=== PATIENT | male | born 1985 | race Caucasian/White ===

== ENCOUNTER 2021-01-28 17:02 | Observation (INO) | payer OTHER, SELFPAY ==
[2021-01-28 17:03] VITALS: BP 116/77; PULSE 64; RESP 16; TEMP 37; O2SAT 98; BMI 22.6
[2021-01-28] MEDS: Ondansetron 4 MG/2 ML Vial IV (17:36)
[2021-01-28] MEDS: Morphine 4 MG/ML Syringe IV (17:36)
--- NOTE | 2021-01-28 17:40 | RAD_ITS ---
STUDY: X-RAY - LEFT KNEE REASON FOR EXAM: Male, 35 years old. FB TECHNIQUE: 2 view(s) of the knee. COMPARISON: None. FINDINGS: An 8.56 cm metallic nail is present obliquely across the medial femoral condyle partially projecting into the overlying soft tissues. The entry point/laceration for the nail is also seen in the overlying soft tissues. Normal visualized proximal tibia and fibula. Normal proximal tibiofibular articulation. Normal medial femorotibial compartment. Normal lateral femorotibial compartment. Normal patellofemoral articulation. There is no demonstrated joint effusion. RAD/Knee 1 or 2 Views IMPRESSION: 1. An 8.56 cm metallic nail is present obliquely across the medial femoral condyle partially projecting into the overlying soft tissues. The entry point/laceration for the nail is also seen in the overlying soft tissues. Electronically Signed: Eitan Rangel MD at 18:36 EDT , Service support ,
[2021-01-28] MEDS: HYDROmorphone 1 MG/ML Syringe IV (18:27)
[2021-01-28] MEDS: Diphth,Pertuss(Acell),Tet Vac 0.5 ML Vial IM (18:31)
[2021-01-28] MEDS: Cefazolin 2 GM in 0.9% Normal Saline 100 ML IV (18:41)
[2021-01-28 19:17] VITALS: BP 113/74; PULSE 72; RESP 16; O2SAT 99
[2021-01-28] MEDS: Lidocaine 2% /Epi 1:100 (20ml) 20 ML VIAL INFILT (19:22)
--- NOTE | 2021-01-28 20:38 | EX.ED.DYSGE1 ---
HPI History of Present Illness Chief Complaint: Foreign Body Narrative Narrative: Patient is a 35-year-old [facility] male with no reported past medical history. He states he was walking down his ladder today holding his nail gun when he let his arm fall to his side and the nail gun accidentally shot into his left thigh/knee. He denies any other trauma and states he was able to hobble/walk on it. However he cannot get the nail removed at home and secondary to this presents for evaluation PFSH PFS Medical History no medical history Home Medications multivitamin 1 tab PO DAILY 01/28/21 [History Last Taken Unknown] Allergy/AdvReac Type Severity Reaction Status Date / Time No Known Allergies Allergy Verified 01/28/21 17:05 Surgical History no surgical history Social History Smoking Status: Never smoker ROS ROS ED Constitutional Constitutional ED: Denies chills or fever(s) ENT ENT ED: Denies sore throat Cardiovascular Cardiovascular: Denies chest pain Respiratory/Chest Respiratory/Chest: Denies cough or dyspnea Gastrointestinal Gastrointestinal: Denies abdominal pain, diarrhea, nausea or vomiting Genitourinary Genitourinary ED: Denies dysuria Musculoskeletal Musculoskeletal: Reports other Details: Positive left thigh/knee pain Integumentary Reports other Details: Positive puncture wound ; Denies rash Neurologic Neurologic: Denies headache(s) or paresthesias Hematologic/Lymphatic Hematologic/Lymphatic: Denies easy bleeding or easy bruising EXAM Physical Exam Const Vital Signs: 01/28/21 17:03 01/28/21 19:17 Temperature 98.6 F Temperature Source Temporal Pulse Rate 64 72 Respiratory Rate 16 16 Blood Pressure 116/77 113/74 Blood Pressure Mean 90 87 Pulse Ox 98 99 Oxygen Delivery Method Room Air Positive well nourished and well developed General Appearance ED: well developed HEENT Reports moist mucous membranes Eyes PERRL and EOMs intact bilaterally Neck supple Resp normal respiratory effort and clear to auscultation bilaterally Cardio regular rate and regular rhythm GI normal to inspection, nondistended, normoactive bowel sounds, non-tender and non-distended Auscultation: normoactive bowel sounds Palpation: soft Extremity Extremity Narrative: Patient has a puncture wound/nail in place to the left distal thigh just above the knee along the vastus medialis portion of the quadriceps. Active and passive range of motion is severely limited secondary to pain from the foreign body. The compartments are soft but slightly swollen but no obvious changes to suggest compartment syndrome. The patient is also neurovascular intact with plus 2 out of 4 dorsalis pedis pulse. Neuro oriented x3 and CN's II-XII intact bilaterally Sensorium / Orientation: alert Psych mental status grossly normal Skin Skin Narrative: Soft tissue swelling with puncture wound to the left distal thigh/knee as documented above MDM MDM MDM Narrative Medical decision making narrative: Patient presented to the ER with a foreign body/puncture wound to the left distal thigh/knee. He is neurovascularly intact below this site and does not have any changes to suggest compartment syndrome. The patient was given Ancef secondary to the traumatic puncture and his tetanus status was updated. The area was then cleaned with chlorhexidine and anesthetized with 8 mL of 2% lidocaine with epinephrine local fashion. I then attempted to remove the nail but was unable to do so. Secondary to this I contacted orthopedics who evaluated the patient in the ER. They feel the nail is now crossing into the joint and he will need to go to surgery to have this removed. Therefore patient be admitted to their service at this time for surgical intervention to remove his foreign body. Radiography Diagnostic Testing: Clinical Impression(s) from Imaging Studies Knee X-Ray 01/28/21 17:40 IMPRESSION: 1. An 8.56 cm metallic nail is present obliquely across the medial femoral condyle partially projecting into the overlying soft tissues. The entry point/laceration for the nail is also seen in the overlying soft tissues. Electronically Signed: Eitan Rangel MD at 18:36 EDT , Service support , Discharge Plan Dx/Rx/DC Orders Clinical Impression: Acute foreign body of left thigh, Traumatic arthropathy, left knee Disposition Disposition: Acute Care Hospital [facility] Discharge Date/Time: 01/28/21 21:30
--- NOTE | 2021-01-28 20:46 | HP.PCM_ITS ---
HPI - General HPI Narrative DALIA NIETO, is a 35 M who presents approximately 3 hours status post injury to his left knee. 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 He states his fingers on the trigger and his left knee contacted the end of the nail gun causing it to go off into his left knee. Patient was brought to the emergency department at [facility]. X-rays revealed that the nail has bed embedded in the distal femur with intra-articular extension. The emergency department physician attempted to remove the nail but was unsuccessful. I was contacted for my recommendations. Patient denies any numbness or tingling prior to a field block administered by the ED physician. He denies any other associated injuries. Denies any problems prior to this issue with his left knee. [facility] Medical History no medical history Home Medications multivitamin 1 tab PO DAILY 01/28/21 [History Last Taken Unknown] Allergy/AdvReac Type Severity Reaction Status Date / Time No Known Allergies Allergy Verified 01/28/21 17:05 Surgical History no surgical history Social History Smoking Status: Never smoker ROS ROS Narrative 12 point review of systems obtained, negative unless otherwise noted in HPI. Vital Signs Vital Signs Vital Signs: 01/28/21 17:03 01/28/21 19:17 Temperature 98.6 F Temperature Source Temporal Pulse Rate 64 72 Respiratory Rate 16 16 Blood Pressure 116/77 113/74 Blood Pressure Mean 90 87 Pulse Ox 98 99 Oxygen Delivery Method Room Air Weight Weight: 140 lb Body Mass Index (BMI) 22.6 Physical Exam Narrative General -A&Ox3, NAD, appears stated age. Vital signs stable, afebrile. Respiratory -normal work of breathing, no intercostal retractions. CV -pulses regular, brisk capillary refill ?4 limbs. Abdomen-soft, nontender, nondistended. No guarding, rigidity, rebound tenderness. Musculoskeletal/neurologic -full range of motion nontender throughout bilateral upper extremities, right lower extremity with full sensation and strength in all dermatomes and myotomes. No midline cervical tenderness. Left lower extremity-obvious skin puckering along the medial femoral condyle with exposed nail head. No significant effusion is noted of the left knee. Pain with passive and active motion of the knee. Brisk capillary refill. Sensation intact light touch L3-S1 dermatomes. DF, PF, EHL intact. DP, PT 2+. Pelvis is stable, nontender. Skin is intact without lacerations, abrasions. No ecchymosis noted. Results Radiology Impression Knee X-Ray 01/28/21 17:40 IMPRESSION: 1. An 8.56 cm metallic nail is present obliquely across the medial femoral condyle partially projecting into the overlying soft tissues. The entry point/laceration for the nail is also seen in the overlying soft tissues. Electronically Signed: Eitan Rangel MD at 18:36 EDT , Service support , Assessment & Plan Assessment/Plan (1) Traumatic arthropathy, left knee: PLAN: Patient has a retained foreign body, a resident services manager nail, in his left medial femoral condyle extending into the intercondylar notch. I recommended removal of the nail as well as irrigation and debridement to reduce his risk of septic arthritis of the left knee. I did attempt to remove the nail at bedside in the emergency department by first incising the skin to stop the skin from puckering around the entry site. He tolerated this well after the skin was prepped with Betadine. I was able to place a hemostat around the nail, but the nail is well embedded and I recommended this is best performed under general anesthetic. Plan to admit the patient under my care overnight for observation. Plan to proceed with surgery tomorrow for arthroscopic irrigation debridement left knee with removal of foreign body. We will maintain IV Ancef 1 g every 8 until surgery. Tetanus was updated by emergency room physician. N.p.o. after midnight. Maintenance IV fluids. Informed consent obtained for surgery. Risks of surgery include but are not limited to bleeding, infection, loss of life or limb, risk of anesthesia, fracture, need for additional surgery, persistent pain, chondral injury, ligamentous injury, neurovascular injury, DVT/PE. Patient expressed understanding wish to proceed with surgery. We will obtain standard preoperative labs including CBC, BMP, COVID-19 swab. (2) Acute foreign body of left thigh: QUALIFIERS: Encounter type: initial encounter Qualified Code(s): S70.352A - Superficial foreign body, left thigh, initial encounter
[2021-01-28 20:50] VITALS: BP 113/74; PULSE 72; RESP 16; TEMP 37; O2SAT 99
[2021-01-28 20:58] LABS: Absolute Lymphocyte Count 1.41 X10^3/uL (0.83-4.51); Absolute Neutrophil Count 8.3 X10^3/uL (2.0-7.7); Basophil# 0.04 X10^3/uL; Basophil% 0.4 % (0-1); Eosinophil# 0.04 X10^3/uL; Eosinophils% 0.4 % (0-5); Hematocrit 39.3 % (40-54); Hemoglobin 13.4 g/dL (13.0-16.5); Lymphocyte # 1.41 X10^3/ul (0.83-4.51); Lymphocyte % 13.5 % (19-41); Mean Corp Hgb Conc 34.1 g/dL (32-36); Mean Corpuscular Hgb 28.6 pg (27.0-32.0); Mean Corpuscular Volume 83.8 fL (80-94); Mean Platelet Vol. 8.8 fl (6.2-12.0); Monocyte# 0.61 X10^3/uL; Monocyte% 5.8 % (0-10); NRBC Flagged by Analyzer 0 % (0-5); Neutrophil # 8.32 X10^3/uL (2.7-7.7); Neutrophil % 79.5 % (47-70); Platelet Count 204 K/mm3 (150-450); RBC Distribution Width CV 13.8 % (11.6-14.6); RBC Distribution Width SD 41.8 fl (35.1-43.9); Red Blood Count 4.69 M/mm3 (4.6-6.2); White Blood Count 10.5 K/mm3 (4.4-11.0)
[2021-01-28 21:06] VITALS: RESP 16
[2021-01-28 21:15] LABS: Anion Gap 7 (5-15); BUN 14 mg/dL (7-18); BUN/Creat Ratio 16.7 RATIO (10-20); Calcium,Total 8.9 mg/dL (8.5-10.1); Chloride 105 mmol/L (98-107); Creatinine, Serum 0.84 mg/dL (0.70-1.30); EST Glomerular Filtration Rate 112 mL/min (>60); Est Glom Filt Rate - Afr Amer 135 mL/min (>60); Glucose 118 mg/dL (74-106); Potassium 3.7 mmol/L (3.5-5.1); Sodium Level 138 mmol/L (136-145)
[2021-01-28 21:49] VITALS: BP 120/60; PULSE 84; RESP 16; TEMP 36.3; O2SAT 97
[2021-01-28 21:58] VITALS: BMI 22.5
[2021-01-28] MEDS: Lactated Ringers 1,000 ML 125 ML IV (22:37)
[2021-01-28] MEDS: oxyCODONE 5 MG Tablet PO (23:54)
[2021-01-29] VITALS (10 sets, daily range): BP systolic 104–125; BP diastolic 65–83; PULSE 60–72; RESP 16–18; TEMP 36.4–36.8; O2SAT 90–100; BMI 22.5
[2021-01-29] MEDS: Cefazolin 1 GM/50 ML BAG IV ×3 (02:46→16:01)
[2021-01-29] MEDS: oxyCODONE 5 MG Tablet PO (05:45)
[2021-01-29] MEDS: Lactated Ringers 1,000 ML 125 ML IV ×2 (07:05→08:30)
[2021-01-29] MEDS: Bupivacaine Mpf 0.5% 30 ML VIAL (08:05)
[2021-01-29] MEDS: Bupivacaine 0.5% PF 10 ML VIAL (08:05)
--- NOTE | 2021-01-29 08:14 | RAD_ITS ---
STUDY: X-RAY - LEFT KNEE REASON FOR EXAM: Fluoroscopy for foreign body removal. TECHNIQUE: A single intraoperative image of the knee. COMPARISON: Radiographs 01/28/2014. FINDINGS: There is removal of the nail without evidence of complication. 1 second of fluoroscopy time was used. Electronically Signed: Satnam Weiner MD at 11:10 EDT Tel , Service support , RAD/Knee 1 or 2 Views
--- NOTE | 2021-01-29 09:14 | PCM.DC ---
Discharge Instructions Follow Up Care Test Results: Test results from this visit will be discussed in further detail at your follow-up appointment, if applicable. Discharge Plan Admission Admit Date/Time: 01/28/21 20:42 Primary Reason for Your Visit: Retained foreign body left knee, traumatic arthrotomy Attending Provider: Garcia Rose Primary Care Provider: Amos Diallo Instructions Additional Instructions / Restrictions: Ice and elevate left knee Range of motion as tolerated, weightbearing as tolerated left knee Okay to shower 02/01/2021 if no significant drainage. Okay to leave open to air once no drainage. Apply antibiotic ointment after shower. No tub soaks until follow-up. Follow-up with me in the [place] office in 2-3 weeks Discharge Orders/Prescriptions Prescriptions: New aspirin [Aspirin Low Dose] 81 mg tablet,delayed release (DR/EC) 81 mg PO DAILY 14 Days Qty: 14 RF: 0 oxycodone-acetaminophen [Percocet] 5-325 mg tablet 1 tab PO Q6H PRN (Reason: pain) 5 Days Qty: 20 RF: 0 cephalexin 500 mg capsule 500 mg PO Q6H 10 Days Qty: 40 RF: 0 No Action multivitamin Tablet 1 tab PO DAILY RF: 0 Referrals / Follow Up: Amos Diallo DO [Primary Care Provider] - Garcia Rose DO [STAFF PHYSICIAN] - 02/20/21 Disposition Discharge Orders: Discharge Patient (Routine); Ordered 01/29/21 Ordered By: Dr. Garcia Rose
--- NOTE | 2021-01-29 09:17 | PCM.OPRPT ---
Problems Associated Problem List Diagnoses (1) Traumatic arthropathy, left knee: (2) Acute foreign body of left thigh: Report of Operation Date of Procedure: 01/29/21 Description of Surgical Findings:: Date of surgery: 01/29/2021 Preoperative diagnosis: Traumatic arthrotomy left knee with retained foreign body Postoperative diagnosis: 1. Traumatic arthrotomy left knee with retained foreign body 2. Partial tear femoral insertion posterior cruciate ligament left knee 3. Synovitis left knee Procedure: 1. Removal of retained foreign body left femur/knee 2. 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 Hematoma and fraying of the femoral origin of the PCL. Synovitis left knee. Preoperative indications: This is an otherwise healthy 35-year-old male seen as a consultation from the emergency department in the evening of 01/28/2021. Patient was working building a storage barn. He was on a ladder with a nail gun, while descending the ladder his fingers on the trigger in his knee contacted the end of the nail gun. Nail gun went off and a nail punctured his distal medial femur/knee. He was brought to [facility] emergency department where x-rays were obtained and demonstrated a retained metallic nail traversing the medial femoral condyle and exiting with its tip in the intercondylar notch. This demonstrated a traumatic arthrotomy. The emergency room physician administered IV Ancef and tetanus upon arrival. He performed a field block and attempted to extract the nail. This was unsuccessful. I saw the patient in the emergency department. There was significant puckering of the skin on the entry wound. I made a small incision to take pressure off the skin. I was unable to remove the nail emergency department. I recommended operative intervention the following day with the arthroscopic irrigation debridement and removal of foreign body left knee. The risks, benefits, alternatives to procedure were reviewed with patient at length he agreed to proceed. Risks included but were not limited to bleeding, infection, loss of life or limb, risk of anesthesia, persistent pain, neurovascular injury, chondral injury, need for additional surgery, persistent limp, ligamentous injury. Patient expressed understanding wish to proceed with surgery. Patient did receive scheduled Ancef every 8 hours prior to procedure. Description of procedure: Patient was identified in the preoperative holding area the morning of 01/29/2021. Informed consent was confirmed. The operative extremity was marked after the patient was identified by medical record number, date of , and name. All questions were answered patient satisfaction. At time of his procedure he was brought to the operative suite and positioned supine on a standard operating table. All bony prominences were well-padded. General anesthesia was induced and laryngeal mask airway placed. After the tube was secured, the left lower extremity dressing was removed. A well-padded pneumatic tourniquet was applied to left upper thigh. We then prepped and draped the left lower extremity in normal, sterile orthopedic fashion with Betadine. We performed a timeout with all parties in attendance in agreement with the side, site, and operation be performed. No concerns were voiced and we elected to proceed. Patient had received a morning dose of IV Ancef scheduled prior to the procedure. I first exsanguinated the left lower extremity with Esmarch bandage. Tourniquet was inflated to 280 mmHg where he remained up for approximately 25 minutes. Esmarch was removed. I first extended the entry wound overlying the medial femoral condyle approximately 1 cm. I bluntly dissected through the VMO. I was able to palpate the head of the nail. After it was freed from surrounding muscle tissue, I placed pliers over the head of the nail. With a combination of twisting and traction, I was able to extract the nail. I examination the nail, the head of the nail had approximately 20% sheared off. To confirm that there was no other retained foreign body or fragment from the nail head, we brought in a C arm. Fluoroscopy demonstrated no metallic fragments. I then copiously irrigated the entry wound. We then began our diagnostic arthroscopy. I placed the knee in 90 degrees of flexion. A standard anterior lateral portal was established with an 11 blade scalpel. I brought the knee into extension after a blunt tipped trocar and attached cannula was inserted into the patellofemoral joint. Blunt tip was removed and exchanged for the arthroscope. We commenced diagnostic arthroscopy. The patellofemoral joint was unremarkable. Medial gutter was unremarkable. Medial compartment was unremarkable. I established the anterior medial portal under direct visualization with a 18-gauge spinal needle. Skin was incised as well as the capsule with an 11 blade scalpel under direct visualization. We then turned our attention to the intercondylar notch. The ACL was probed and appeared pristine. There was significant hematoma at the femoral origin of the PCL. This was debrided with an arthroscopic radial resector. There was also some fraying of the PCL consistent with a partial femoral sided PCL tear. This encompassed less than 10% of the PCL. There was synovitis noted especially with the fat pad. The ligamentum mucosum was also frayed and subsequently debrided with a radial resector. I also debrided the fat pad and surrounding synovitis. I turned my attention to the lateral compartment as the knee was brought into a [id number]. The lateral compartment was unremarkable and pristine. The lateral gutter was unremarkable. I then completed thorough irrigation of 6 L normal saline through the knee joint. I closed the anterior medial and anterolateral portal sites with interrupted 4-0 nylon suture. Tourniquet was deflated. Hemostasis was excellent. Portal sites, knee, and entry wound were injected with 15 cc 0.5% plain Marcaine. VMO fascia and dermis was reapproximated with 3-0 Vicryl suture. Skin was finally reapproximated with interrupted horizontal mattress 4-0 nylon suture. Sterile compression dressing was applied. Patient was then safely extubated in the operative suite and transferred to his hospital bed in stable condition. Intraoperative medications: 15 cc 0.5% plain Marcaine Postoperative plan: Patient will be weightbearing as tolerated to the left lower extremity, range of motion as tolerated Prescription for Percocet 5/325 #20 sent to the pharmacy DVT prophylaxis-aspirin 81 mg twice daily starting today. Early mobilization. SCDs while in the hospital. Odsrue-mt-[id number]-up with me in approximately 3 weeks in the [place] office. Disposition-patient will receive his afternoon dose of Ancef and then be discharged to home on oral Keflex 500 mg 4 times daily for 10 days.
--- NOTE | 2021-01-29 09:34 | DS.PCM_ITS ---
Providers Date of Admission: 01/28/21 Primary Care Physician: Dr. Amos Diallo DO Reason For Visit: TRAUMATIC ARTHROTOMY WITH FOREIGN BODY LEFT KNEE Diagnosis Discharge Diagnosis (1) Traumatic arthropathy, left knee: Status: Acute Code(s): M12.562 - Traumatic arthropathy, left knee (2) Acute foreign body of left thigh: Status: Acute Code(s): S70.352A - Superficial foreign body, left thigh, initial encounter Qualifiers: Encounter type: initial encounter Qualified Code(s): S70.352A - Superficial foreign body, left thigh, initial encounter Medications at Discharge Home Medications multivitamin 1 tab PO DAILY 01/28/21 aspirin [Aspirin Low Dose] 81 mg PO DAILY 14 Days #14 tab 01/29/21 cephalexin 500 mg PO Q6H 10 Days #40 cap 01/29/21 oxycodone-acetaminophen [Percocet] 1 tab PO Q6H PRN 5 Days #20 tab 01/29/21 Hospital Course Summary of Care Provided Minutes Spent on Discharge: 15 Hospital Course: Patient was admitted 01/28/2021 after a traumatic arthrotomy from a nail gun with retained foreign body to his left knee. He underwent uncomplicated removal of retained foreign body, irrigation debridement arthroscopically left knee with myself on 01/29/2021. He received scheduled IV antibiotics throughout his stay. He will receive 1 dose IV Ancef prior to discharge the afternoon of 01/29/2021. Physical Exam Narrative General - A&Ox3, NAD. VSS/AF Left lower extremity -incisional dressing C/D/I. SILT Sural, Saphenous, SPN, DPN, Tibial N. distributions. DP, PT 2+. BCR. DF, PF, EHL 5/5. No calf TTP. Weight / BMI Weight Weight: 139 lb 15.896 oz Body Mass Index (BMI) 22.5 ABG / Lab / Microbiology Data Result Diagrams: 01/28/21 20:45 01/28/21 20:45 Laboratory: Laboratory Results - last 24 hr 01/28/21 20:45: WBC 10.5, RBC 4.69, Hgb 13.4, Hct 39.3 L, MCV 83.8, MCH 28.6, MCHC 34.1, RDW Std Deviation 41.8, RDW Coeff of Sy 13.8, Plt Count 204, MPV 8.8, Immature Gran % (Auto) 0.400, Neut % (Auto) 79.5 H, Lymph % (Auto) 13.5 L, Hawkins % (Auto) 5.8, Eos % (Auto) 0.4, Baso % (Auto) 0.4, Absolute Neuts (auto) 8.3 H, Absolute Lymphs (auto) 1.41, Nucleated RBC % 0 01/28/21 20:45: Sodium 138, Potassium 3.7, Chloride 105, Carbon Dioxide 26.0, Anion Gap 7, BUN 14, Creatinine 0.84, Estim Creat Clear Calc 111.30, Est GFR (MDRD) Af Amer 135, Est GFR (MDRD) Non-Af 112, BUN/Creatinine Ratio 16.7, Glu cose 118 H, Calcium 8.9 01/28/21 20:45: Blood Type O POSITIVE, Antibody Screen NEGATIVE Microbiology: Microbiology 01/28/21 20:45 Nasal Secretion SARS-CoV-2 Antigen (Rapid) - Final Radiography Diagnostic Testing: Radiology Impression Knee X-Ray 01/28/21 17:40 IMPRESSION: 1. An 8.56 cm metallic nail is present obliquely across the medial femoral condyle partially projecting into the overlying soft tissues. The entry point/laceration for the nail is also seen in the overlying soft tissues. Electronically Signed: Eitan Rangel MD at 18:36 EDT , Service support , D/C Instructions Discharge Diet: No restrictions Discharge Activity: Return to Normal Activity, No Restrictions and May Drive (If not taking pain medication) May shower in (days): 3 May resume sexual activity in: No Restrictions Ice area for (Minutes): 20 Weight Bearing Status: Weight bearing as tolerated Keep extremity elevated above heart level: Operative Extremity Call your doctor if your incision/area has: Continuous Slow Oozing, Sudden Increased Bleeding, Increased Pain/ Swelling and Foul Smelling Discharge Call your doctor if you observe: Fever of 101 or Higher and Calf discomfort Change Dressing in: 1 day (Place Band-Aids over incisions) Please Follow Up With: Garcia Rose, When: 02/20/2021 Meaningful Use Info Meaningful Use Diagnoses (Choose all that apply): None applicable Discharge Plan Admission Admit Date/Time: 01/28/21 20:42 Primary Reason for Your Visit: Retained foreign body left knee, traumatic arthrotomy Attending Provider: Garcia Rose Primary Care Provider: Amos Diallo Instructions Additional Instructions / Restrictions: Ice and elevate left knee Range of motion as tolerated, weightbearing as tolerated left knee Okay to shower 02/01/2021 if no significant drainage. Okay to leave open to air once no drainage. Apply antibiotic ointment after shower. No tub soaks until follow-up. Follow-up with me in the [place] office in 2-3 weeks Discharge Orders/Prescriptions Prescriptions: New aspirin [Aspirin Low Dose] 81 mg tablet,delayed release (DR/EC) 81 mg PO DAILY 14 Days Qty: 14 RF: 0 oxycodone-acetaminophen [Percocet] 5-325 mg tablet 1 tab PO Q6H PRN (Reason: pain) 5 Days Qty: 20 RF: 0 cephalexin 500 mg capsule 500 mg PO Q6H 10 Days Qty: 40 RF: 0 No Action multivitamin Tablet 1 tab PO DAILY RF: 0 Referrals / Follow Up: Amos Diallo DO [Primary Care Provider] - Garcia Rose DO [STAFF PHYSICIAN] - 02/20/21 Disposition Discharge Orders: Discharge Patient (Routine); Ordered 01/29/21 Ordered By: Dr. Garcia Rose
[2021-01-29] MEDS: Aspirin 81 MG TAB.CHEW PO ×2 (10:21→16:01)
[2021-01-29] MEDS: Acetaminophen 500 MG Tablet 1000 MG PO ×2 (10:21→13:05)
== END 2021-01-29 17:20 | disposition home or self-care (01) ==
LOC: ED 20:39 → MS2 21:20
PROVIDERS: Admitting Provider Student in an Organized Health Care Education/Training Program; Emergency Provider Emergency Medicine; PCP Physician Assistant; Visit Provider Student in an Organized Health Care Education/Training Program
PROC: (CPT 20103; principal; 2021-01-29 07:15)
DX: S71.142A Puncture wound with foreign body, left thigh, initial encounter (principal); W45.0XXA Nail entering through skin, initial encounter; Y93.01 Activity, walking, marching and hiking; Y92.9 Unspecified place or not applicable; Y99.9 Unspecified external cause status; M12.58 Traumatic arthropathy, other specified site; Z23 Encounter for immunization; M65.9 Synovitis and tenosynovitis, unspecified; S83.92XA Sprain of unspecified site of left knee, initial encounter
CPT/HCPCS: 00400; 20103; 29875; 73560; 76000; 80048; 85025; 86850; 86900; 86901; 87426; 90471; 90715; 96361; 96365; 96366; 96375; 97161; 99218; 99251; 99283; J7050; J7120; A4216; G0378; G0463; J2405